=== PATIENT | female | born 1945 | race Caucasian/White ===

== ENCOUNTER 2020-07-07 01:12 | Emergency (ER) | payer MEDICARE ==
[~2020-07-07 01:12] MED LIST: ALPHAGAN P5 ML OU; ATIVAN0.5 MG PO; CALCIUM + VITA1 EACH PO; CEFDINIR300 MG PO; DUONEB 2.5-0.5M1 AMP NEB; HCTZ25 MG PO; LEVAQUIN500 MG PO; MUCINEX 600MG600 MG PO; NORCO 5/3251 EACH PO; PAXIL40 MG PO; PREDNISONE 20MG20 MG PO; PRINIVIL20 MG PO; ROBAXIN750 MG PO; XALATAN2.5 ML OU
== END 2020-07-07 03:18 | disposition left against medical advice (07) ==
LOC: FER 01:12
DX: R11.10 Vomiting, unspecified (principal); R19.7 Diarrhea, unspecified; Z53.8 Procedure and treatment not carried out for other reasons

== ENCOUNTER 2021-07-10 11:46 | Emergency (ER) | payer MEDICARE ==
[~2021-07-10 11:46] MED LIST changes: +PREVALITE4 GM PO; +ZOLOFT50 MG PO
[2021-07-10 12:30] LABS: BILIRUBIN NEGATIVE (NEGATIVE); BLOOD 1+ Ery/uL (NEGATIVE); CLARITY CLEAR (CLEAR); COLOR YELLOW (YELLOW); GLUCOSE (U) NORMAL (NORMAL); LEUKOCYTES NEGATIVE Leu/uL (NEGATIVE); NITRITE NEGATIVE (NEGATIVE); PROTEIN NEGATIVE (NEGATIVE); SPECIFIC GRAVITY 1.015 (1.001-1.030); UROBILINOGEN 0.2 mg/dL (0.2-1.0)
[2021-07-10 12:46] LABS: BASOPHIL 0.9 % (0-2); EOSINOPHIL 6.1 % (0-7); HCT 40.7 % (37.0-47.0); HGB 13.6 g/dl (12.5-16.0); LYMPHOCYTE 22.5 % (15-48); MCH 30.4 pg (25.0-31.0); MCHC 33.4 g/dL (32.0-36.0); MCV 91.1 fL (78.0-100.0); MONOCYTE 5.6 % (0-12); MPV 8.4 fL (6.0-9.5); NEUTROPHIL 64.5 % (41-80); NRBC 0; PLT 168 K/uL (150-400); RBC 4.47 M/uL (4.20-5.40); RDW 14.2 % (11.5-14.0); WBC 7.7 K/uL (4.0-10.5)
[2021-07-10 13:15] LABS: BUN/CREAT RATIO (CALC) 13.3 RATIO; CREATININE 1.13 mg/dL (0.51-0.95); POTASSIUM 3.5 mmol/L (3.5-5.1)
[2021-07-10] MEDS ORDERED: NORCO 5-325 TA1 EACH PO (13:47)
== END 2021-07-10 14:01 | disposition home or self-care (01) ==
LOC: FER 11:46
PROVIDERS: Emergency Medicine
DX: M54.31 Sciatica, right side (principal); R31.9 Hematuria, unspecified; I10 Essential (primary) hypertension; Z87.891 Personal history of nicotine dependence; Z79.899 Other long term (current) drug therapy
CPT/HCPCS: 36415; 71045; 73502; 80048; 81001; 84484; 85025; 93005; J7512

== ENCOUNTER 2021-07-12 05:33 | Emergency (ER) | payer MEDICARE ==
[~2021-07-12 05:33] MED LIST changes: +NORCO 5-325 TA1 EACH PO
[2021-07-12] MEDS ORDERED: MEDROL 4MG DOSEP4 MG PO (05:53)
[2021-07-12] MEDS ORDERED: ONDANSETRON ODT4 MG PO (05:53)
[2021-07-12 05:58] LABS: BILIRUBIN NEGATIVE (NEGATIVE); BLOOD 1+ Ery/uL (NEGATIVE); CLARITY CLEAR (CLEAR); COLOR YELLOW (YELLOW); GLUCOSE (U) NORMAL (NORMAL); LEUKOCYTES NEGATIVE Leu/uL (NEGATIVE); NITRITE NEGATIVE (NEGATIVE); PROTEIN NEGATIVE (NEGATIVE); SPECIFIC GRAVITY 1.015 (1.001-1.030); UROBILINOGEN 0.2 mg/dL (0.2-1.0)
[2021-07-12 06:07] LABS: SQUAMOUS EPITHELIAL CELLS RARE; URINARY WBC RARE
== END 2021-07-12 06:25 | disposition home or self-care (01) ==
LOC: FER 05:33
PROVIDERS: Emergency Medicine
DX: M54.41 Lumbago with sciatica, right side (principal); I10 Essential (primary) hypertension
CPT/HCPCS: 81001; 99283; J1885; J7512

== ENCOUNTER 2021-12-21 14:31 | Inpatient (IN) | payer MEDICARE ==
[~2021-12-21] VITALS: Ht 165.1 cm; Wt 58.2 kg
[~2021-12-21 14:31] MED LIST changes: +MEDROL 4MG DOSEP4 MG PO; +ONDANSETRON ODT4 MG PO
[2021-12-21 16:09] LABS: BASOPHIL 0.5 % (0-2); EOSINOPHIL 1.2 % (0-7); HCT 39.8 % (37.0-47.0); HGB 13.8 g/dl (12.5-16.0); LYMPHOCYTE 10.7 % (15-48); MCH 31.8 pg (25.0-31.0); MCHC 34.7 g/dL (32.0-36.0); MCV 91.7 fL (78.0-100.0); MONOCYTE 5.8 % (0-12); MPV 8.8 fL (6.0-9.5); NEUTROPHIL 81.2 % (41-80); NRBC 0; PLT 170 K/uL (150-400); RBC 4.34 M/uL (4.20-5.40); RDW 12.6 % (11.5-14.0)
[2021-12-21 16:29] LABS: BUN/CREAT RATIO (CALC) 18.5 RATIO; CREATININE 0.92 mg/dL (0.51-0.95); POTASSIUM 3.1 mmol/L (3.5-5.1)
[2021-12-21 16:59] LABS: BILIRUBIN NEGATIVE (NEGATIVE); BLOOD TRACE-INTACT Ery/uL (NEGATIVE); CLARITY CLEAR (CLEAR); COLOR YELLOW (YELLOW); GLUCOSE (U) NORMAL (NORMAL); LEUKOCYTES NEGATIVE Leu/uL (NEGATIVE); NITRITE NEGATIVE (NEGATIVE); PROTEIN NEGATIVE (NEGATIVE); UROBILINOGEN 0.2 mg/dL (0.2-1.0)
[2021-12-21 17:18] LABS: URINARY RBC RARE
[2021-12-21 17:19] LABS: CALCIUM CARBONATE CRYSTALS TRACE
[2021-12-21] MEDS ORDERED: PROZAC20 MG PO (19:24)
[2021-12-22 06:14] LABS: BASOPHIL 0.2 % (0-2); EOSINOPHIL 0 % (0-7); HGB 13.1 g/dl (12.5-16.0); LYMPHOCYTE 11.6 % (15-48); MCH 31.6 pg (25.0-31.0); MCHC 33.6 g/dL (32.0-36.0); MCV 94.2 fL (78.0-100.0); MONOCYTE 7.3 % (0-12); MPV 8.8 fL (6.0-9.5); NEUTROPHIL 80.6 % (41-80); NRBC 0; PLT 147 K/uL (150-400); RBC 4.14 M/uL (4.20-5.40); RDW 13.1 % (11.5-14.0); WBC 8.9 K/uL (4.0-10.5)
[2021-12-22 07:31] LABS: ALBUMIN 3.6 g/dL (3.4-5.0); BILIRUBIN - TOTAL 1.9 mg/dL (0.2-1.0); BUN/CREAT RATIO (CALC) 20.7 RATIO; CREATININE 0.92 mg/dL (0.51-0.95); GLOBULIN (CALCULATION) 3.3 g/dL; MAGNESIUM 1.9 mg/dL (1.8-2.4); TOTAL PROTEIN 6.9 g/dL (6.4-8.2)
[2021-12-22 08:00] LABS: POTASSIUM 4.8 mmol/L (3.5-5.1)
[2021-12-22 08:06] LABS: INR 1.03 (0.9-1.2); PROTHROMBIN TIME 13.2 SECONDS (11.9-13.9); PTT 26.5 SECONDS (24.9-34.6)
[2021-12-23 06:49] LABS: BUN/CREAT RATIO (CALC) 22.1 RATIO; CREATININE 1.04 mg/dL (0.51-0.95); POTASSIUM 4.2 mmol/L (3.5-5.1)
[2021-12-23 07:25] LABS: BASOPHIL 0.5 % (0-2); EOSINOPHIL 0.2 % (0-7); HCT 29.4 % (37.0-47.0); HGB 9.7 g/dl (12.5-16.0); LYMPHOCYTE 14.2 % (15-48); MCH 31.9 pg (25.0-31.0); MCV 96.7 fL (78.0-100.0); MONOCYTE 8.8 % (0-12); MPV 9.3 fL (6.0-9.5); NEUTROPHIL 75.7 % (41-80); NRBC 0; PLT 120 K/uL (150-400); RBC 3.04 M/uL (4.20-5.40); RDW 13.1 % (11.5-14.0); WBC 9.4 K/uL (4.0-10.5)
[2021-12-24 05:45] LABS: BASOPHIL 0.4 % (0-2); EOSINOPHIL 1.8 % (0-7); HCT 22.9 % (37.0-47.0); HGB 7.7 g/dl (12.5-16.0); LYMPHOCYTE 15.8 % (15-48); MCHC 33.6 g/dL (32.0-36.0); MONOCYTE 8.2 % (0-12); MPV 9.2 fL (6.0-9.5); NEUTROPHIL 73.5 % (41-80); NRBC 0; PLT 111 K/uL (150-400); RBC 2.41 M/uL (4.20-5.40); RDW 12.9 % (11.5-14.0); WBC 6.8 K/uL (4.0-10.5)
[2021-12-25 06:59] LABS: BUN/CREAT RATIO (CALC) 20.7 RATIO; CREATININE 0.92 mg/dL (0.51-0.95); POTASSIUM 4.2 mmol/L (3.5-5.1)
[2021-12-25 08:00] LABS: BASOPHIL 0.4 % (0-2); EOSINOPHIL 5.4 % (0-7); HCT 30.6 % (37.0-47.0); LYMPHOCYTE 19.5 % (15-48); MCV 91.3 fL (78.0-100.0); MONOCYTE 9.4 % (0-12); MPV 9.5 fL (6.0-9.5); NEUTROPHIL 64.8 % (41-80); NRBC 0; PLT 107 K/uL (150-400); RBC 3.35 M/uL (4.20-5.40); RDW 15.3 % (11.5-14.0); WBC 5.6 K/uL (4.0-10.5)
[2021-12-25 08:02] LABS: HGB 10.4 g/dl (12.5-16.0)
[2021-12-27 06:35] LABS: BASOPHIL 0.3 % (0-2); EOSINOPHIL 2.8 % (0-7); HCT 30.7 % (37.0-47.0); HGB 10.4 g/dl (12.5-16.0); LYMPHOCYTE 9.2 % (15-48); MCH 31.3 pg (25.0-31.0); MCHC 33.9 g/dL (32.0-36.0); MCV 92.5 fL (78.0-100.0); MONOCYTE 7.9 % (0-12); MPV 9.1 fL (6.0-9.5); NEUTROPHIL 79.4 % (41-80); NRBC 0; PLT 155 K/uL (150-400); RBC 3.32 M/uL (4.20-5.40); RDW 14.6 % (11.5-14.0); WBC 9.4 K/uL (4.0-10.5)
[2021-12-27 07:07] LABS: BUN/CREAT RATIO (CALC) 18.1 RATIO; CREATININE 0.83 mg/dL (0.51-0.95); POTASSIUM 3.3 mmol/L (3.5-5.1)
[2021-12-27 13:50] LABS: BILIRUBIN NEGATIVE (NEGATIVE); BLOOD 3+ Ery/uL (NEGATIVE); CLARITY CLOUDY (CLEAR); COLOR YELLOW (YELLOW); GLUCOSE (U) NORMAL (NORMAL); LEUKOCYTES 3+ Leu/uL (NEGATIVE); NITRITE NEGATIVE (NEGATIVE); PROTEIN NEGATIVE (NEGATIVE); SPECIFIC GRAVITY <=1.005 (1.001-1.030); UROBILINOGEN 0.2 mg/dL (0.2-1.0)
[2021-12-27 14:02] LABS: BACTERIA 4+; URINARY WBC 20-50
[2021-12-28] MEDS ORDERED: CHILDREN'S ASPI81 MG PO (17:22)
[2021-12-28] MEDS ORDERED: ATIVAN0.5 MG PO (17:22)
[2021-12-28] MEDS ORDERED: NORCO 5-325 TA1 EACH PO (17:22)
== END 2021-12-28 22:04 | DRG 480 ==
LOC: FER 14:31 → FTCU 17:00 → FMS 17:00 → FTCU 18:11 → FMS 12-25 14:40
PROVIDERS: Emergency Medicine; Internal Medicine; Nurse Practitioner Acute Care; Orthopaedic Surgery; ADMIT Internal Medicine
PROC: 0QS706Z Reposition Left Upper Femur with Intramedullary Internal Fixation Device, Open Approach (ICD-10-PCS; principal; 2021-12-22 10:00)
DX: S72.145A Nondisplaced intertrochanteric fracture of left femur, initial encounter for closed fracture (principal); G92.9 Unspecified toxic encephalopathy; D62 Acute posthemorrhagic anemia; T40.605A Adverse effect of unspecified narcotics, initial encounter; T41.45XA Adverse effect of unspecified anesthetic, initial encounter; F41.9 Anxiety disorder, unspecified; E86.1 Hypovolemia; I10 Essential (primary) hypertension; J44.9 Chronic obstructive pulmonary disease, unspecified; K21.9 Gastro-esophageal reflux disease without esophagitis; F32.A Depression, unspecified; K57.90 Diverticulosis of intestine, part unspecified, without perforation or abscess without bleeding; Z85.3 Personal history of malignant neoplasm of breast; W19.XXXA Unspecified fall, initial encounter; Y92.009 Unspecified place in unspecified non-institutional (private) residence as the place of occurrence of the external cause; Z20.822 Contact with and (suspected) exposure to COVID-19; Z90.710 Acquired absence of both cervix and uterus; Z90.49 Acquired absence of other specified parts of digestive tract; Z87.891 Personal history of nicotine dependence; Z90.12 Acquired absence of left breast and nipple; S12.600D Unspecified displaced fracture of seventh cervical vertebra, subsequent encounter for fracture with routine healing; E87.6 Hypokalemia; Z28.311 Partially vaccinated for COVID-19
CPT/HCPCS: 36415; 36430; 70450; 71045; 71250; 72125; 73501; 73502; 76000; 80048; 80053; 81001; 83735; 85025; 85610; 85730; 86850; 86900; 86901; 86922; 87076; 87088; 87186; 93005; 94010; 94760; 97110; 97112; 97162; 97166; 97530; 97530-GP; 97535; C1713; J0696; J0697; J1170; J2250; J2405; J2704; J2916; J3010; J3480; J7120; P9016; U0002